=== PATIENT | male | born 2005 | race Caucasian/White ===

== ENCOUNTER 2024-10-23 22:23 | Emergency (ER) | payer OTHER, SELFPAY ==
[2024-10-23 22:34] VITALS: BP 151/57; PULSE 63; RESP 16; TEMP 36.2; O2SAT 100; BMI 35.3
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
[2024-10-23 23:01] VITALS: BP 129/47; PULSE 63; O2SAT 95
--- NOTE | 2024-10-23 23:27 | PC.NURSE ---
Abelardo Lofton rounded on this pt. family is at bedside. pt does not need anything at this time
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
[2024-10-23 23:32] VITALS: BP 111/66; PULSE 62; O2SAT 97
[2024-10-23 23:46] VITALS: BP 137/97; PULSE 72; O2SAT 97
[2024-10-23] MEDS: IBUPROFEN 600 MG TABLET PO (23:50)
[2024-10-24 01:13] VITALS: BP 120/81; PULSE 89; RESP 20; TEMP 37.2; O2SAT 100
== END 2024-10-24 01:14 | disposition home or self-care (01) ==
PROVIDERS: Emergency Provider Emergency Medicine
DX: R51.9 Headache, unspecified (principal); V40.5XXA Car driver injured in collision with pedestrian or animal in traffic accident, initial encounter
CPT/HCPCS: 70450; 72125; 99285

== ENCOUNTER 2025-04-28 11:11 | Emergency (ER) | payer OTHER, SELFPAY ==
[2025-04-28 11:18] VITALS: BP 148/68; PULSE 94; RESP 18; TEMP 36.8; O2SAT 100; BMI 83.2
--- OUTSIDE RECORDS SUMMARY | 2025-04-28 11:28 | XMS_ITS | Clinical Summary ---
Author Organization [facility] Address [address] [place] [phone] Phone Care Team Providers Care Medical Assistant Per Diem Name Role Phone Clifton Nova MD Primary Care Physician [ ] Conditions or Problems Problem Name Problem Code Onset Date Status Entry Date Provider Comment Standard Description Annotate COSTOCHONDRI TIS 34251990 (SNOMED CT) 07/04 Resolved 07/04 Clifton Nova MD Costal chondritis PHARYNGITIS ACUTE 086625365 (SNOMED CT) 09/08 Resolved 09/08 Clifton Nova MD Acute pharyngitis History of BEHAV- DELIQUENCY F91.9 (ICD-10-CM ) Correction 06/30 Clifton Nova MD Conduct disorder, unspecified SINUSITIS ACUTE 35981881 (SNOMED CT) Resolved Clifton Nova MD Acute sinusitis COSTOCHONDRI TIS 46111118 (SNOMED CT) 07/04 Removed 07/04 Clifton Nova MD Costal chondritis PHARYNGITIS ACUTE 255920271 (SNOMED CT) 09/08 Removed 09/08 Clifton Nova MD Acute pharyngitis History of BEHAV- DELIQUENCY F91.9 (ICD-10-CM ) Removed 06/30 Alayna Hurestelita Conduct disorder, unspecified ADHD 803411465 (SNOMED CT) Active Clifton Nova MD Attention deficit hyperactivity disorder SINUSITIS ACUTE 82165310 (SNOMED CT) Removed Clifton Nova MD Acute sinusitis ASTHMA 031444424 (SNOMED CT) Active Clifton Nova MD Asthma Medications Medication Instructions Start Date Stop Date Generic Name NDC Provider AMOXICILLIN 500 MG CAPS Take 1 capsule by mouth three times a day 0 11/04 amoxicillin 29653921024 Pat Craven DMD IBU 600 MG TABS Take 1 tablet by mouth every six hours as needed ibuprofen 23106317096 Pat Craven DMD IBUPROFEN 200 MG TABS 1 q 6-8 hrs prn pain or fever 10/02 IBUPROFEN 95978926779 Clifton Nova MD PROVENTIL HFA 108 (90 Base) MCG/ACT INHALATION AEROSOL SOLUTION USE 1-2 INHALATIONS EVERY 4 HOURS NEEDED 10/02 ALBUTEROL SULFATE 12315187860 Clifton Nova MD ADVAIR DISKUS 100-50 MCG/DOSE INHALATION AEROSOL POWDER BREATH ACTIVATED TAKE 1 INHALATION 2 TIMES A DAY 10/02 FLUTICASONE-SALMET KORINA 60104818054 Clifton Nova MD SINGULAIR 5 MG CHEW TAKE 1 TABLET BY MOUTH ONCE A DAY 10/02 MONTELUKAST SODIUM 78288089413 Clifton Nova MD AZITHROMYCIN 250 MG TABS 2 1st dose then 1 q d for 4 d more 10/02 AZITHROMYCIN 37274095679 Clifton Nova MD ADDERALL 20 MG TABS 1 in am / 1 at lunch AMPHETAMINE-DEXTRO AMPHETAMINE 09534370260 Clifton oNva MD QVAR 80 MCG/ACT INHALATION AEROSOL SOLUTION use 2 puffs daily BECLOMETHASONE DIPROPIONATE 68723715769 Clifton Nova MD VENTOLIN HFA 108 (90 Base) MCG/ACT AERS use 2 puffs every 4-6 hrs as needed for wheezing ALBUTEROL SULFATE 06590609560 Clifton Nova MD IBUPROFEN 200 MG TABS 1 q 6-8 hrs prn pain or fever IBUPROFEN 52880453156 Clifton Nova MD AZITHROMYCIN 250 MG TABS 2 1st dose then 1 q d for 4 d more AZITHROMYCIN 86153085011 Clifton Nova MD ADDERALL 10 MG TABS 1 q am / 1 q lunch Dx:314.01 AMPHETAMINE-DEXTRO AMPHETAMINE 28642905841 Clifton Nova MD SINGULAIR 5 MG CHEW TAKE 1 TABLET BY MOUTH ONCE A DAY MONTELUKAST SODIUM 35515166764 Chelsea Simon HOPPER ADVAIR DISKUS 100-50 MCG/DOSE INHALATION AEROSOL POWDER BREATH ACTIVATED TAKE 1 INHALATION 2 TIMES A DAY FLUTICASONE-SALMET KORINA 07935353440 Chelsea Montes RUCHI PROVENTIL HFA 108 (90 Base) MCG/ACT INHALATION AEROSOL SOLUTION USE 1-2 INHALATIONS EVERY 4 HOURS NEEDED ALBUTEROL SULFATE 51410592896 Chelsea Montes RUCHI AMOXICILLIN 250 MG/5ML SUSR 2 tsp bid 03/10 AMOXICILLIN 31135400256 Chelsea Lewis RUCHI AMOXICILLIN 250 MG/5ML SUSR 2 tsp bid AMOXICILLIN 40163414493 Clifton Nova MD ADDERALL 10 MG TABS 1 q am / 1 q lunch Dx:314.01 AMPHETAMINE-DEXTRO AMPHETAMINE 69349108289 Clifton Nova MD AMOXICILLIN 250 MG/5ML SUSR 2 tsp bid 09/18 AMOXICILLIN 97287758848 Clifton Nova MD VYVANSE 30 MG CAPS 1 q d Dx:314.01 09/28 LISDEXAMFETAMINE DIMESYLATE 04985288019 Clifton Nova MD VYVANSE 30 MG CAPS 1 q d Dx; 314.01 07/28 LISDEXAMFETAMINE DIMESYLATE 76585176377 Clifton Nova MD VYVANSE 30 MG CAPS 1 q d LISDEXAMFETAMINE DIMESYLATE 79302747747 Clifton Nova MD VYVANSE 20 MG CAPS 1 q am 07/29 LISDEXAMFETAMINE DIMESYLATE 82862860727 Clifton Nova MD AMOXICILLIN 250 MG/5ML SUSR 2 tsp bid AMOXICILLIN 29082555105 Clifton Nova MD PREDNISONE 20 MG TABS 1 bid PREDNISONE 11720089141 Clifton Nova MD CONCERTA 54 MG CR-TABS 1 q d 07/13 METHYLPHENIDATE HCL 26101387637 Clifton Nova MD Medications Administered No information available. Allergies, Adverse Reactions, Alerts Observed no known allergies at Results No information available. Plan of Care Type Date Detail Pending order Throat Culture Pending order Immunization(s) Ordered Pending order VFC Flu 3 yrs an d older Pending order IMADM THROUGH 18 YR ANY ROUTE 1ST VAC/TOXOID Pending order Throat Culture Pending order Throat Culture ( Outside Lab) Procedures Code Procedure Name Date Entry Date CPT-85797 Throat Culture CPT-G8447 Encounter documented using a certified EH R IMMORDER Immunization(s) Ordered 2010 CPT-50500WDB VFC Flu 3 yrs and older 2010 CPT-17250 IMADM THROUGH 18YR ANY ROUTE 1ST VAC/TOXO ID CPT-G8447 Encounter documented using a certified EH R CPT-43561 Throat Culture CPT-57048 Throat Culture (Outside Lab) Vital Signs Date Name Value Unit Description BMI (Body Mass Index) 15.16 kg/m2 Bod y Mass Index (Ratio) BP Diastolic 65 mm[Hg] blood pressu re, diastolic BP Systolic 97 mm[Hg] blood pressur e, systolic BSA (Body Surface Area) 1.07 b manjinder surface area Heart Rate 125 /min pulse rate Height 55 [in_us] height E&M Height 139.7 cm height in cent imeters E&M Weight Measured 29.55 kg weight in kilograms E&M Weight Measured 65 [lb_av] weight E& M Weight Measured 65 [lb_av] weight E& M Body Temperature 98.9 [degF] temperat ure E&M Body Temperature 37.17 Sara temperat ure in centigrade E&M Immunizations Vaccine Administration Date Standard Description CVX Co de Dose mmr #2 03 Unknown mmr #1 03 Unknown ipv #2 10 Unknown ipv #3 10 Unknown ipv #4 10 Unknown pneuped#2 109 Unknown pneuped#4 109 Unknown ipv #1 10 Unknown pneuped#3 109 Unknown hib #4 17 Unknown hib #1 17 Unknown hib #2 17 Unknown dtap #4 20 Unknown dtap #3 20 Unknown hib #3 17 Unknown varicella#1 21 Unknown dtap #1 20 Unknown dtap #5 20 Unknown dtap #2 20 Unknown pneumovax 133 Unknown hepbvax#3 45 Unknown hepbvax#1 45 Unknown hepavax #1 85 Unknown hepbvax#2 45 Unknown flu vax#1 88 Unknown Advance Directives No information available.
--- OUTSIDE RECORDS SUMMARY | 2025-04-28 11:29 | XMS_ITS | Clinical Summary ---
Author Organization [facility] Address [address] [place] [id number] Care Team Providers Care Histology Technologist Name Role Phone Adam Miranda MD Primary Care Provider [phone] Source Comments [facility] is fully rolled out with thefollowing exceptions:General Clinical Research [facility] Allergies No known active allergies Medications amphetamine-dextr oamphetamine (ADDERALL) 20 MG tablet Take 20 mg by mouth 2 times a day. Active acetaminophen (TYLENOL) 160 MG/5ML suspension 15 mL. Ac tive ibuprofen (MOTRIN) 100 MG/5ML suspension 15 mL. Ac tive albuterol 90 mcg/act inhaler Take 6 Puffs by inhalation every 4 hours as needed for wheezing. With spacer 1 Inhaler 8 Active albuterol (PROVENTIL) (2.5 MG/3ML) 0.083% nebulization solution Nebulize 3 mL (2.5 mg total) with a nebulizer every 4 hours as needed for wheezing or cough. 50 Ampule 8 Active Social History Tobacco Use Types Packs/Day Years Used Date Smoking Tobacco: Never Assessed Intimate Partner Violence Answer Date R ecorded If you are in a relationship , do you feel safe in that relationship? Yes 04/06/2018 Safe in relationship? (18 and older) Not on file 04/06/2018 Safety and Environment Answer Date Julian rded Do you have any concerns of physical abuse, sexual abuse, or neglect of your child? No 04/06/2018 Adult hurting you or family (11-18) Not on file 04/06/2018 Someone touched you in a sexual way? (11-18) Not on file 04/06/2018 Someone hurting you or family (18 and older) Not on file 04/06/2018 Historical abuse worry Not on file 8 If you have firearms in the home, are they all in locked storage AND unloaded? Not on file 04/06/2018 Sex and Gender Information Value Date Recorded Sex Assigned at Not on file Legal Sex Male 5:16 AM EST Gender Identity Not on file Sexual Orientation Not on file Last Filed Vital Signs Vital Sign Reading Time Taken Comments Blood Pressure 115/47 04/06/2018 9:39 PM EDT Pulse 96 04/06/2018 9:39 PM EDT Temperature 36.8 C (98.2 F) 04/06/2018 9:39 PM EDT Respiratory Rate 20 04/06/2018 9:39 PM EDT Oxygen Saturation 99% 04/06/2018 9:39 PM EDT Inhaled Oxygen Concentration - - Weight 117.1 kg (258 lb 2.5 oz) 04/06/2018 7:21 PM EDT Height - - Body Mass Index - - Plan of Treatment Health Maintenance Due Date Last Done Comments HPV IMMUNIZATION (1 - Male 3-dose series) 11/13/2018 MENINGOCOCCAL B VACCINE (1 of 2 - Standard) 2019 DTAP/Tdap/Td IMMUNIZATION (7 - Td or Tdap) 01/19/2025 01/19/2015, 01/30/2008, 02/14/2005, Additional history exists AMB SEASONAL FLU VACCINE (#1) 02/23/2025 03/10/2011 COVID-19 Vaccine ( - season) 2025 HEPATITIS B IMMUNIZATION Completed 004, 03/28/2004, 02/05/2004 HIB IMMUNIZATION Completed 2004, , 03/28/2004, Additional history exists PNEUMOCOCCAL IMMUNIZATION Completed 2004, 06/08/2004, 03/28/2004, Additional history exists VARICELLA IMMUNIZATION Completed 06/13/2007, 2004 MMR IMMUNIZATION Completed 06/20/2007, 02/14/2005 IPV IMMUNIZATION Completed 01/30/2008, , 03/28/2004, Additional history exists MCV4 IMMUNIZATION Aged Out 01/19/2015 No longer eligible based on patient's age to complete this topic HEPATITIS A IMMUN (OPTIONAL 2-17 YRS) Discontinued 01/15/2018, 03/21/2010 Respiratory Syncytial Virus (RSV) <20mo Aged Out No longer eligible based on patient's age to complete this topic Insurance Member Subscriber Plan / Payer (Ef fective for All Dates) Name:YoliGetachewMtarminda Vigil Relation to Subscriber:Self Name:Getachew Kentemcristi Vigil Payer ID:[id number] (NAIC) Group ID:Not on file Type:HMO Medicaid Address: [place], [place] Care Teams Histology Technologist Relationship Specialty Start Date End Date Adam Miranda MD [facility] [address] [place] [address] PCP - General External Family Practice 07/15/15
--- NOTE | 2025-04-28 11:54 | [facility].EDGENADL ---
Discharge Plan Disposition Patient Disposition: Home, Self-Care Condition: Good Prescriptions Prescriptions: New sulfamethoxazole-trimethoprim [Bactrim] 400-80 mg tablet 1 tab PO BID 7 Days Qty: 14 0RF Referrals Follow up/Referrals: General Surgery [Provider Group] - See instructions Referral Note: follow up- pilonidal cyst Tobias Elliott MD [Primary Care Provider, Medical] - See instructions Activity Restrictions/Add. Instructions Additional Instructions/Restrictions: You were seen in the emergency department for a pilonidal cyst. Please take Bactrim for the next 7 days. Please follow-up with general surgery in clinic. Please keep the area clean and dry. You may shower, please do not bathe or swim. If you develop worsening systemic symptoms including higher fever, chills, night sweats, please return to the emergency department for evaluation. Clinical Impressions Clinical Impression: Cyst, pilonidal, with abscess Instructions Patient Instructions: DI for Pilonidal Cyst Drainage or Removal Print Language Print Language: Niuean Discharge ED Provider: Avtar Partida Adult HPI General Chief complaint: Wound/Laceration Stated complaint: Swelling around tailbone Time Seen by Provider: 04/28/25 11:48 Mode of Arrival: Ambulatory Source of Information: Patient Description of Symptoms (Recalled from ER Triage Doc. by RN): patient presents for a possible pilonidal cyst that he noticed 2 days ago. patient stated i/t has been draining but unable to tell triage staff what the characteristics of it are. he rates it [phone]. History of Present Illness HPI narrative: This patient is a 19-year-old male he does have a past medical history of skin abscesses. Historically these have healed without antibiotic intervention. The patient reports that he noticed mild swelling the day before last, yesterday the swelling had slightly increased, today he had significantly increased pain, inability to sit down, and also systemic symptoms including symptomatic fever, chills. Related Data Previous Rx's ?Medication ?Instructions ?Recorded sulfamethoxazole 400 1 tab PO BID 7 days #14 tabs 04/28/25 mg-trimethoprim 80 mg tablet (Bactrim) Allergies Allergy/AdvReac Type Severity Reaction Status Date / Time No Known Allergies Allergy Verified 10/23/24 23:15 [facility] Disclaimer: The information contained in this section may have been updated after the patient was seen, as this information can be updated by other users. Social History (Updated 10/24/24 @ 01:17 by Jovan Hickman MD) Smoking Status: Current some day smoker alcohol intake: never current occupational status: other Travel in the last 8 weeks?: None Have you lived/traveled outside [place] in past 30 days?: No Contact w/someone who lives/traveled outside [place] past 30 days?: No Exposure to someone with infectious disease in past 14 days?: No Do you have a fever (greater than 100.4 F or 38 C)?: No Have you tested positive for COVID-19?: No Exposed to someone with COVID-19 in past 14 days?: No Do you have a sore throat?: No Do you have a cough?: No Do you have any weakness?: No Do you have any diarrhea?: No Are you experiencing any unusual bleeding?: No Do you have any muscle aches/pain?: No Do you have any abdominal pain?: No Are you experiencing loss of taste or smell?: No ROS Obtained: Yes All systems reviewed & no additional complaints except as documented Physical Exam General General appearance: alert and in no apparent distress Head Head exam: atraumatic and normocephalic Eye Eye exam: Present normal appearance, PERRL and EOMI ENT ENT exam: Present normal exam and normal external ear exam Neck Neck exam: Present normal inspection, full ROM and trachea midline Chest Chest inspection: Present normal inspection and symmetric chest wall rise; Absent tenderness Respiratory Respiratory exam: Absent respiratory distress Cardiovascular Cardiovascular exam: Present regular rate, normal rhythm and other (appears warm and well perfused) Abdominal Exam Abdominal exam: Absent distention or tenderness Comment: Large area of fluctuant swelling at top of gluteal cleft exam: Absent deferred Extremities Exam Extremities exam: Present normal inspection and full ROM Neurological Exam Neurological exam: Present alert and oriented X3 Psychiatric Psychiatric exam: Present normal affect Skin Skin exam: Present warm and dry Medical Decision Making Medical Records Medical records reviewed: Yes I reviewed the patient's medical records. Screening: Per USPSTF and CDC recommendations, given the prevalence of disease in our region, it is our hospital?s policy to screen for HIV and viral Hepatitis for all patients aged 18 and over and those with ongoing risk factors. [place] Inquiry Pt receiving controlled substance: No [place] was queried for this patient: No Vital Signs: 04/28/25 11:18 04/28/25 14:00 Temperature 98.2 F 98.4 F Temperature Source Temporal Artery Scan Pulse Rate 84 Pulse Rate [Right Radial] 94 H Respiratory Rate 18 18 Blood Pressure 135/67 Blood Pressure [Right Arm] 148/68 H Blood Pressure Mean [Right Arm] 94 Blood Pressure Source [Right Arm] Automatic Cuff Blood Pressure Position [Right Arm] Sitting 02 Sat by Pulse Oximetry 100 Oxygen Delivery Method Room Air Lab Data Lab results reviewed: Yes I reviewed the patient's lab results. Lab Results 04/28/25 12:20: WBC 15.5 H, RBC 4.89, Hgb 13.1 L, Hct 40.0 L, MCV 81.8, MCH 26.8 L, MCHC 32.8, RDW 13.5, Plt Count 372, MPV 10.2, Neut % (Auto) 72.6, Lymph % (Auto) 16.8, [place] % (Auto) 8.1, Eos % (Auto) 1.7, Baso % (Auto) 0.3, Neut # (Auto) 11.3 H, Lymph # (Auto) 2.6, [place] # (Auto) 1.3 H, Eos # (Auto) 0.3, Baso # (Auto) 0.1, Sodium 137, Potassium 3.7, Chloride 101, Carbon Dioxide 28, Anion Gap 11.7, BUN 21 H, Creatinine 0.90, Estimated Creat Clear 159, Estimated GFR 107, Est GFR ( Amer) 129, Glucose 99, Calcium 9.4, Total Bilirubin 0.7, AST 31, ALT 36, Alkaline Phosphatase 59, C-Reactive Protein 69.5 H, Total Protein 8.8 H, Albumin 4.6, Globulin 4.2 H, Albumin/Globulin Ratio 1.1 04/28/25 12:20 04/28/25 12:20 Orders (Tests/Meds): ED MEDICATIONS Discontinued Medications Generic Name Dose Route Start Last Admin Trade Name Freq PRN Reason Stop Dose Admin Lidocaine/Epinephrine 0 ml 04/28/25 11:56 Lidocaine 1% W/Epi 1:100,000 20ml Vial SQ 04/28/25 11:57 ONCE ONE Morphine Sulfate 4 mg 04/28/25 11:54 04/28/25 12:28 Morphine 4mg/Ml Syringe IV 04/28/25 11:55 4 mg ONCE ONE Administration Ondansetron HCl 4 mg 04/28/25 11:54 04/28/25 12:28 Ondansetron 4mg/2ml Vial IV 04/28/25 11:55 4 mg ONCE ONE Administration ORDERS Category Date Time Status CBC w/Auto Diff [Complete Blood Count Auto Diff] Stat Lab 04/28/25 12:20 Completed CMP [Comprehensive Metabolic Panel] Stat Lab 04/28/25 12:20 Completed CRP [C-Reactive Protein] Stat Lab 04/28/25 12:20 Completed Medical Decision Narrative: MDM In summary, this 19-year-old male presents to the emergency department today with swelling. Initial evaluation the patient comfortable, hemodynamically. Differential diagnosis includes but is not limited to pilonidal cyst, perirectal abscess, abscess, cellulitis. Patient received morphine, Zofran for treatment. Labs personally reviewed and interpreted demonstrate leukocytosis, elevated laboratory markers, no significant anemia. Based on physical exam I thought it is most likely the patient had a pilonidal cyst. He had no pain with bowel movements and so I felt the perirectal abscess was unlikely. I performed a [id number] ultrasound which showed a 4 x 4 cm abscess beneath the surface of the skin at the top of the gluteal cleft. I performed an incision and drainage and placed a [place] Eye drain and placed a referral for close follow-up with the general surgery team here at [facility]. The patient was comfortable with this plan. Additionally due to mild systemic symptoms I did place the patient on Bactrim. Procedures Abscess I/D Site: other (Gluteal cleft) Local Anesthetic: lidocaine 1% Amount of anesthesia used (mL): 7 ([place]) Amount of fluid expressed (mL): 50 Irrigation: Yes Packing used?: jeremy drain Critical Care Critical Care Time Critical Care Time: No
[2025-04-28 12:28] LABS: Hematocrit 40.0 % (42.0-52.0); Hemoglobin 13.1 g/dL (14.1-18.0); Immature Granulocytes % 0.5 %; Mean Corpuscular HGB Conc 32.8 g/dL (31.8-35.4); Mean Corpuscular Hemoglobin 26.8 pg (27.0-31.2); Mean Corpuscular Volume 81.8 fl (80-94); Nucleated Red Blood Cells % 0 %; Platelet Count 372 K/mm3 (142-424); Red Blood Count 4.89 M/mm3 (4.60-6.20); Red Cell Distribution Width-SD 40.2 fL; White Blood Count 15.5 K/mm3 (4.8-10.8)
[2025-04-28] MEDS: MORPHINE 4MG/ML SYRINGE 4 MG IV (12:28)
[2025-04-28] MEDS: ONDANSETRON 4MG/2ML VIAL 4 MG IV (12:28)
[2025-04-28 12:37] LABS: Alanine Aminotransferase 36 U/L (12-78); Albumin Level 4.6 g/dl (3.5-5.0); Albumin/Globulin Ratio 1.1 (1.1-1.8); Alkaline Phosphatase 59 U/L (38-126); Anion Gap 11.7 mEq/L (5-15); Aspartate Amino Transferase 31 U/L (17-59); Bilirubin,Total 0.7 mg/dl (0.2-1.3); Blood Urea Nitrogen 21 mg/dl (9-20); Calcium 9.4 mg/dl (8.4-10.2); Carbon Dioxide 28 mmol/L (22.0-30.0); Chloride 101 mmol/L (98-107); Creatinine Clearance Estimated 159 mL/min (50-200); Creatinine,Serum 0.90 mg/dl (0.66-1.25); Estimated Glomerular Filt Rate 107 ml/min (>60); GFR (African American) 129 ML/MIN (>60); Globulin 4.2 g/dL (1.3-3.2); Glucose 99 mg/dl (74-100); Potassium 3.7 mmoL/L (3.5-5.1); Sodium 137 mmol/L (136-145); Total Protein,Serum 8.8 g/dl (6.3-8.2)
[2025-04-28 12:42] LABS: C-Reactive Protein 69.5 mg/L (0-4)
[2025-04-28 14:00] VITALS: BP 135/67; PULSE 84; RESP 18; TEMP 36.9; O2SAT 96
== END 2025-04-28 14:00 | disposition home or self-care (01) ==
PROVIDERS: Emergency Provider Student in an Organized Health Care Education/Training Program; PCP Family Medicine
DX: L05.01 Pilonidal cyst with abscess (principal)
CPT/HCPCS: 10061; 80053; 85025; 86140; 96374; 96375; 99282; 99284; J2004; J2270; J2405